=== PATIENT | female | born 1955 | race African-American/Black ===

== ENCOUNTER → 2016-04-18 | Outpatient (CLI) | payer OTHER ==
[2014-11-09 00:48] VITALS: BP 138/65
--- NOTE | 2016-04-18 11:35 | KCIC ---
PROCEDURE MRI cervical spine without contrast. HISTORY Cervical pain and cervical radicular pain, chronic neck pain, numbness in the arms enhance, headaches TECHNIQUE Sagittal and axial T2, sagittal T1, sagittal STIR images were acquired of the cervical spine Contrast: None COMPARISON None FINDINGS Accurate evaluation of neural foramina is somewhat compromised due to some motion degradation. Cervical vertebral body stature is maintained. There is straightening of the cervical spine with very mild reversal of the lordotic curvature centered about C4-5. There is negligible anterior spondylolisthesis at C7-T1. There is multilevel fairly advanced degenerative disc disease C3-4 to C6-7. Cervical cord caliber is within normal limits. There are small foci of T2 and STIR hyperintense signal abnormality of the cord bilaterally at the C6-7 level. There is also questionable tiny focus of the left paracentral cord at the inferior aspect of C2. Trace edema of the posterior, superior right C5 endplate and very mild edema of the posterior C6-7 endplates is likely reactive/degenerative in etiology. C2-3: Spinal canal and the neural foramina are adequate. C3-4: There is posterior disc osteophyte complex and bulge. Central canal is minimally narrowed to 8 millimeters. There is mild uncovertebral degenerative change greater on the right. There is mild to moderate narrowing of the right neural foramen, left neural foramen not significantly narrowed. C4-5: There is shallow broad posterior disc osteophyte complex and bulge. Central canal is minimally narrowed to 8 millimeters. There is uncovertebral degenerative change. There is suspected mild to moderate left and moderate to severe right neural foramina compromise. C5-C6: There is posterior disc osteophyte complex and bulge. Central canal is narrowed to approximately 7-8 millimeters. There is uncovertebral degenerative change. There is suspected moderate to severe left and at least moderate right neural foramina compromise. C6-7: There is posterior disc osteophyte complex and bulge. Central canal is narrowed to 7-8 millimeters. There is mild left uncovertebral degenerative change, mild to moderate narrowing of the left neural foramen. Right neural foramen is overall adequate. C7-T1: Spinal canal and the neural foramina are adequate. IMPRESSION 1. There is multilevel advanced degenerative disc disease C3-4 to C6-7, multilevel spondylosis. 2. There is multilevel mild spinal stenosis on the order of 7 8 millimeters C3-4 to C6-7. 3. Accurate evaluation of the neural foramina is somewhat compromised due to mild motion, suspected neural foramina compromise as stated most notable bilaterally at C5-C6, right greater than left at C4-5, on the right at C3-C4, and on the left at C6-7. Uncovertebral degenerative change contributes to neural foramina compromise. 4. There are small foci of non expansile signal change of the cord bilaterally at the level of C6-C7 and questionable focus of left paracentral cord at C2. Sequela of myelomalacia seems most likely. Electronically signed by: Paulie Hernandez MD (Apr 18, 2016 11:31:45)
== END | disposition home or self-care (01) ==
LOC: KCIC MRI 10:14
PROVIDERS: ATTEND Physician Assistant Surgical
DX: M54.2 Cervicalgia (principal); M54.12 Radiculopathy, cervical region
CPT/HCPCS: 72141